=== PATIENT | female | born 1975 | race Caucasian/White ===

== ENCOUNTER 2017-08-31 11:09 | Emergency (ER) | payer BC ==
[2017-08-31] MEDS ORDERED: SODIUM CHLORIDE 0.9% 1,000 ML IV STA (11:35)
[2017-08-31] MEDS ORDERED: HYDROmorphone 0.5 MG/0.5 ML SYRINGE IVP STA (11:35)
[2017-08-31] MEDS ORDERED: RX INFO: IV CONTRAST WAS GIVEN 1 EACH MISC MISCELLANE PRN (11:55)
--- NOTE | 2017-08-31 12:02 | ED ---
General Adult HPI - General Chief complaint: Abdominal Pain Stated complaint: Abdominal pain Time Seen by Provider: 08/31/17 11:25 Source: patient, RN notes reviewed Mode of arrival: ambulatory Limitations: no limitations - History of Present Illness Initial comments: 42-year-old female presents to the emergency department with a chief complaint of abdominal pain. She states she started with nausea vomiting diarrhea that started on Monday. Patient states she's continued to have this nausea vomiting diarrhea and she states that she does not seem to be improving. Patient states she continues to have this pain and discomfort she went to the clinic where she was originally seen for any referred her here. She states she was told she had an elevated white count. She denies any blood in the vomit or diarrhea. She denies any surgeries on the abdomen she does admit to some pelvic surgeries. She was concerned due to her continued symptoms so she thought that she should be seen. There is been no fever or chills.Patient denies any recent fever, chills, shortness of breath, chest pain, back pain, numbness or tingling, dysuria or hematuria, constipation, headaches or visual changes, or any other current symptoms. - Related Data Home Medications Medication Instructions Recorded Confirmed Atorvastatin [Lipitor] 20 mg PO HS 08/31/17 08/31/17 Omeprazole [PriLOSEC] 20 mg PO HS 08/31/17 08/31/17 Ondansetron [Zofran ODT] 8 mg PO Q12HR PRN 08/31/17 08/31/17 Previous Rx's Medication Instructions Recorded Dicyclomine [Bentyl] 10 mg PO TID #20 capsule 08/31/17 Ondansetron Odt [Zofran ODT] 4 mg PO Q8HR PRN #20 tab 08/31/17 Allergies Allergy/AdvReac Type Severity Reaction Status Date / Time sulfamethoxazole Allergy Rash/Hives Verified 08/31/17 11:25 [From Bactrim] trimethoprim [From Bactrim] Allergy Rash/Hives Verified 08/31/17 11:25 amoxicillin [From Augmentin] AdvReac Vomiting Verified 08/31/17 11:25 clavulanic acid AdvReac Vomiting Verified 08/31/17 11:25 [From Augmentin] Review of Systems ROS Statement: Those systems with pertinent positive or pertinent negative responses have been documented in the HPI. ROS Other: All systems not noted in ROS Statement are negative. Past Medical History Past Medical History: GERD/Reflux, Hyperlipidemia History of Any Multi-Drug Resistant Organisms: None Reported Past Surgical History: No Surgical Hx Reported Past Psychological History: No Psychological Hx Reported Smoking Status: Never smoker Past Alcohol Use History: None Reported Past Drug Use History: None Reported General Exam - General Exam Comments Initial Comments: General: The patient is awake and alert, in no distress, and does not appear acutely ill. Eye: Pupils are equal, round and reactive to light, extra-ocular movements are intact; there is normal conjunctiva bilaterally. No signs of icterus. Ears, nose, mouth and throat: There are moist mucous membranes. Neck: The neck is supple, there is no tenderness. Cardiovascular: There is a regular rate and rhythm. No murmur, rub or gallop is appreciated. Respiratory: Lungs are clear to auscultation, respirations are non-labored, breath sounds are equal. No wheezes, stridor, rales, or rhonchi. Gastrointestinal: Soft, non-distended, generalized tenderness of the abdomen without masses or organomegaly noted. There is no rebound or guarding present. No CVA tenderness. Bowel sounds are unremarkable. Back: There is no tenderness to palpation in the midline. There is no obvious deformity. No rashes noted. Musculoskeletal: Normal ROM, no tenderness, There is no pedal edema. There is no calf tenderness or swelling. Sensation intact. Pulses equal bilaterally 2+. Neurological: CN II-XII intact, There are no obvious motor or sensory deficits. Coordination appears grossly intact. Speech is normal. Skin: Skin is warm and dry and no rashes or lesions are noted. Psychiatric: Cooperative, appropriate mood & affect, normal judgment. Limitations: no limitations Course Vital Signs 08/31/17 11:14 Temperature 97.8 F Pulse Rate 75 Respiratory 18 Rate Blood Pressure 125/62 O2 Sat by Pulse 99 Oximetry Medical Decision Making - Medical Decision Making 42-year-old female presents emergency department with chief complaint abdominal pain. At this time patient's lab work was reviewed. At this time CT was reviewed as well. At this time patient does appear to frontal colitis. We discussed we'll start her on Zofran and Bentyl for home. We discussed continued follow-up we discussed return parameters all questions. Patient stated that she understood and she is agreement this plan. All questions have been answered. She will be discharged. - Lab Data Result diagrams: 08/31/17 11:54 08/31/17 11:54 Lab Results 08/31/17 08/31/17 08/31/17 Range/Units 11:54 11:54 13:00 WBC 4.8 (3.8-10.6) k/uL RBC 4.37 (3.80-5.40) m/uL Hgb 12.9 (11.4-16.0) gm/dL Hct 37.9 (34.0-46.0) % MCV 86.8 (80.0-100.0) fL MCH 29.6 (25.0-35.0) pg MCHC 34.1 (31.0-37.0) g/dL RDW 12.6 (11.5-15.5) % Plt Count 287 (150-450) k/uL Neutrophils % 64 % Lymphocytes % 23 % Monocytes % 7 % Eosinophils % 2 % Basophils % 1 % Neutrophils # 3.1 (1.3-7.7) k/uL Lymphocytes # 1.1 (1.0-4.8) k/uL Monocytes # 0.3 (0-1.0) k/uL Eosinophils # 0.1 (0-0.7) k/uL Basophils # 0.0 (0-0.2) k/uL Sodium 140 (137-145) mmol/L Potassium 3.7 (3.5-5.1) mmol/L Chloride 102 (98-107) mmol/L Carbon Dioxide 27 (22-30) mmol/L Anion Gap 11 mmol/L BUN 8 (7-17) mg/dL Creatinine 0.80 (0.52-1.04) mg/dL Est GFR (MDRD) Af Amer >60 (>60 ml/min/1.73 sqM) Est GFR (MDRD) Non-Af >60 (>60 ml/min/1.73 sqM) Glucose 100 H (74-99) mg/dL Calcium 9.2 (8.4-10.2) mg/dL Total Bilirubin 0.6 (0.2-1.3) mg/dL AST 31 (14-36) U/L ALT 35 (9-52) U/L Alkaline Phosphatase 93 (38-126) U/L Total Protein 7.0 (6.3-8.2) g/dL Albumin 4.2 (3.5-5.0) g/dL Amylase 102 (30-110) U/L Lipase 296 (23-300) U/L Urine Color Light Yellow Urine Appearance Clear (Clear) Urine pH 6.5 (5.0-8.0) Urine Protein Trace H (Negative) Urine Glucose (UA) Negative (Negative) Urine Ketones Trace H (Negative) Urine Blood Negative (Negative) Urine Nitrite Negative (Negative) Urine Bilirubin Negative (Negative) Urine Urobilinogen <2.0 (<2.0) mg/dL Ur Leukocyte Esterase Negative (Negative) - Radiology Data Radiology results: report reviewed, image reviewed Disposition Clinical Impression: Enterocolitis Disposition: HOME SELF-CARE Condition: Stable Instructions: Colitis (ED) Additional Instructions: Please use medication as discussed. Please follow up with family doctor if symptoms have not improved over the next two days. Please return to the emergency room if your symptoms increase or worsen or for any other concerns. Prescriptions: Dicyclomine [Bentyl] 10 mg PO TID #20 capsule Ondansetron Odt [Zofran ODT] 4 mg PO Q8HR PRN #20 tab PRN Reason: Nausea Referrals: Raghavendra Castillo MD [Primary Care Provider] - 1-2 days Time of Disposition: 13:23
[2017-08-31 12:11] LABS: Basophils % (A) 1 %; Eosinophils # (A) 0.1 k/uL (0-0.7); Eosinophils % (A) 2 %; HCT 37.9 % (34.0-46.0); HGB 12.9 gm/dL (11.4-16.0); Lymphocytes # (A) 1.1 k/uL (1.0-4.8); Lymphocytes % (A) 23 %; MCH 29.6 pg (25.0-35.0); MCHC 34.1 g/dL (31.0-37.0); MCV 86.8 fL (80.0-100.0); Mean Platelet Volume 6.6; Monocytes # (A) 0.3 k/uL (0-1.0); Monocytes % (A) 7 %; Neutrophils # (A) 3.1 k/uL (1.3-7.7); Neutrophils % (A) 64 %; Platelet Count 287 k/uL (150-450); RBC 4.37 m/uL (3.80-5.40); RDW 12.6 % (11.5-15.5); WBC 4.8 k/uL (3.8-10.6)
[2017-08-31 12:22] LABS: ALT 35 U/L (9-52); AST 31 U/L (14-36); Albumin 4.2 g/dL (3.5-5.0); Alkaline Phosphatase 93 U/L (38-126); Amylase 102 U/L (30-110); Anion Gap 11 mmol/L; Blood Urea Nitrogen 8 mg/dL (7-17); Calcium 9.2 mg/dL (8.4-10.2); Carbon Dioxide 27 mmol/L (22-30); Chloride 102 mmol/L (98-107); Glucose 100 mg/dL (74-99); Lipase 296 U/L (23-300); Potassium 3.7 mmol/L (3.5-5.1); Sodium 140 mmol/L (137-145); Total Bilirubin 0.6 mg/dL (0.2-1.3)
--- NOTE | 2017-08-31 12:45 | CT ---
EXAMINATION TYPE: CT abdomen pelvis w con DATE OF EXAM: 08/31/2017 COMPARISON: NONE HISTORY: Generalized pain for 5 days with nausea, vomiting and diarrhea CT DLP: 548 mGycm CONTRAST: CT scan of the abdomen and pelvis is performed without Oral Contrast and with IV Contrast, patient in jected with 100 mL of Omnipaque 300. FINDINGS: LUNG BASES-: No visible nodule. No infiltrate. LIVER/GB: No calcified gallstones. No space occupying hepatic lesion. Biliary tree is of normal ca liber. PANCREAS: No inflammation. No distinct mass. SPLEEN: No splenic enlargement. No lesion seen. ADRENALS: No nodule. No thickening. KIDNEYS/BLADDER: No hydronephrosis. No nephrolithiasis. No distinct solid renal mass. Small renal cyst right kidney. Urinary bladder grossly unremarkable. BOWEL: Wall thickening involving the small bowel as well as the large bowel felt to reflect enterocol itis. Small amount of free fluid within the pelvis. No evidence of perforation or abscess. Normal jazmyn endix.. GENITAL ORGANS: 2 cm left ovarian cyst. LYMPH NODES: No greater than 1cm abdominal or pelvic lymph nodes are appreciated. AORTA: No significant abnormality. OSSEOUS STRUCTURES: No significant abnormality is seen. OTHER: No significant additional abnormality is seen. IMPRESSION: 1. Correlate for enterocolitis. 2. 2 cm left ovarian cyst. 3. Small amount of free fluid within the pelvis.
[2017-08-31 13:09] LABS: Appearance,Urine Clear (Clear); Bilirubin,Urine Negative (Negative); Blood,Urine Negative (Negative); Color,Urine Light Yellow; Glucose,Urine (UA) Negative (Negative); Ketones,Urine Trace (Negative); Leukocyte Esterase,Urine Negative (Negative); Nitrite,Urine Negative (Negative); PH, Urine 6.5 (5.0-8.0); Protein,Urine Trace (Negative); Urobilinogen,Urine <2.0 mg/dL (<2.0)
[2017-08-31 13:32] LABS: Specific Gravity,Urine >1.050 (1.001-1.035)
[2017-08-31 13:46] VITALS: BP 116/57; PULSE 70; RESP 16; TEMP 97.9
== END 2017-08-31 14:12 | disposition home or self-care (01) ==
LOC: EC 11:09
DX: K52.9 Noninfective gastroenteritis and colitis, unspecified (principal); K21.9 Gastro-esophageal reflux disease without esophagitis; E78.5 Hyperlipidemia, unspecified; Z79.899 Other long term (current) drug therapy; Z88.2 Allergy status to sulfonamides; Z88.0 Allergy status to penicillin
CPT/HCPCS: 99284; 96374; 36415; 80053; 82150; 83690; 85025; 81003; 87040; 74177; Q9967; J1170

== ENCOUNTER 2017-10-04 09:54 | Day surgery (SDC) | payer BC ==
[2017-10-02 13:11] VITALS: BMI 26.2
[~2017-10-04 09:54] MED LIST: LACTATED RINGERS 1,000 ML IV SCH; LIDOCAINE 1% 20 ML VIAL (10MG/ML) FOR IV START INTRADERMA PRN
[2017-10-04 11:33] VITALS: TEMP 98.6
[2017-10-04 11:34] LABS: Glucose,Whole Blood 86 mg/dL (75-99)
[2017-10-04] MEDS ORDERED: LIDOCAINE 1% INJ 10MG/ML (20 ML MDV) ONE (11:47)
[2017-10-04] MEDS ORDERED: PROPOFOL 10 MG/ML 20 ML VIAL IV ONE (11:47)
--- NOTE | 2017-10-04 12:02 | P.PCN ---
Date of Procedure: 10/04/17 Procedure(s) Performed: BRIEF HISTORY: Patient is a 42-year-old pleasant white female, scheduled for an elective colonoscopy as a part of evaluation of chronic diarrhea for the last 6 weeks duration. She is been having bowel movements anywhere from 4-5 a day which are loose to watery in consistency but no blood in the stool. She was treated briefly with antibiotics and steroids with no help. She is hence scheduled for colonoscopy to evaluate further. She also has family history of colon cancer diagnosed in her father. PROCEDURE PERFORMED: Colonoscopy with random biopsies. PREOPERATIVE DIAGNOSIS:. Diarrhea of 6 weeks duration. IV sedation per Anesthesia. PROCEDURE: After informed consent was obtained, the patient, was brought into the endoscopy unit. IV sedation was administered by Anesthesia under continuous monitoring. Digital rectal examination was normal. Initially the Olympus CF- 160 flexible video colonoscope was then inserted in the rectum, gradually advanced into the cecum without any difficulty. Careful examination was performed as the scope was gradually being withdrawn. Ileocecal valve and the appendiceal orifice were visualized and appeared normal. Prep was excellent. Terminal ileum was intubated and 20 cm visualized and appeared normal. Mucosa of the cecum, ascending colon, transverse colon, descending colon, sigmoid colon , and rectum appeared normal. Random biopsies were done from ascending and descending colon to rule out microscope/collagenous colitis. Retroflexion was performed in the rectum and no lesions were seen. The patient tolerated the procedure well. IMPRESSION: Normal-appearing colon from rectum to cecum with no evidence of colitis or colorectal neoplasia . RECOMMENDATIONS: Findings of this examination were discussed with the patient as well as a family. She was advised to follow with the biopsy results. She can have a repeat colonoscopy in 5 years because of the family history of colon cancer.
[2017-10-04 12:43] VITALS: RESP 18
[2017-10-04 12:47] VITALS: BP 113/75; PULSE 80
--- NOTE | 2017-10-06 11:02 | CDI ---
Outpatient Documentation Clarification Form Date: 10/06/17 CDS/Ham Pumper Name: Amalia Crowell Phone: If any questions, call Lala Galaviz Internal Recruiter at [phone] Patient Name: Gilma Chowdhury Admit Date: 10/04/17 Discharge Date: 10/04/17 ATTENTION: The [facility] Coding Staff appreciate your assistance in clarifying documentation. Please respond to the clarification below the line at the bottom and electronically sign. The [facility] Coding staff will review the response and follow-up if needed. Please note: Queries are made part of the Legal Health Record. If you have any questions, please contact the Internal Recruiter. Dear Dr. Meliza Valdez, The patient presented with chronic diarrhea. The anesthesiologist documented IBS. Is the patients chronic diarrhea due to IBS? Or, is it unrelated? Thank you for your kind consideration. MTDD
--- NOTE | 2017-10-10 16:07 | CDI ---
Outpatient Documentation Clarification Form Date: 10/06/17 CDS/Research Worker Encyclopedia Name: Amalia Crowell Phone: If any questions, call Lala Galaviz Chief Wharfinger at [phone] Patient Name: Gilma Chowdhury Admit Date: 10/10/17 Discharge Date: 10/10/17 ATTENTION: The [facility] Coding Staff appreciate your assistance in clarifying documentation. Please respond to the clarification below the line at the bottom and electronically sign. The [facility] Coding staff will review the response and follow-up if needed. Please note: Queries are made part of the Legal Health Record. If you have any questions, please contact the Chief Wharfinger. Dear Dr. Meliza Valdez, The patient presented with chronic diarrhea. The anesthesiologist documented IBS. Is the patients chronic diarrhea due to IBS? Or, is it unrelated? Thank you for your kind consideration. MTDD
--- NOTE | 2017-10-17 15:37 | CDI ---
Outpatient Documentation Clarification Form Date: 10/17/17 CDS/Embroidery Worker Name: Amalia Crowell Phone: If any questions, call Lala Galaviz Software Installation Engineer at [phone] Patient Name: Gilma Chowdhury Admit Date: 10/04/17 Discharge Date: 10/04/17 ATTENTION: The [facility] Coding Staff appreciate your assistance in clarifying documentation. Please respond to the clarification below the line at the bottom and electronically sign. The [facility] Coding staff will review the response and follow-up if needed. Please note: Queries are made part of the Legal Health Record. If you have any questions, please contact the Software Installation Engineer. Dear Dr. Meliza Valdez, The patient presented with chronic diarrhea. The anesthesiologist documented IBS. Is the patients chronic diarrhea due to IBS? Patient has chronic diarrhea because of IBS. Meliza Valdez. MTDD
== END 2017-10-04 12:50 | disposition home or self-care (01) ==
LOC: ORWHC2ENDO 09:54
PROVIDERS: ATTEND Internal Medicine Gastroenterology
DX: K58.0 Irritable bowel syndrome with diarrhea (principal); Z80.0 Family history of malignant neoplasm of digestive organs; K21.9 Gastro-esophageal reflux disease without esophagitis; E78.5 Hyperlipidemia, unspecified; G43.909 Migraine, unspecified, not intractable, without status migrainosus; Z79.899 Other long term (current) drug therapy; Z88.1 Allergy status to other antibiotic agents; Z88.2 Allergy status to sulfonamides
CPT/HCPCS: 81025; 88305; 45380; J2001; J2704

== ENCOUNTER → 2020-05-12 | Outpatient (CLI) | payer BC ==
--- NOTE | 2020-05-12 12:13 | MM ---
Reason for exam: screening (asymptomatic). Baseline mammogram. History: Taking progesterone for 1 year beginning at age 43. Took other hormone for 1 year beginning at age 43. Physical Findings: Nurse did not find any significant physical abnormalities on exam. MG 3D Screening Mammo W/Cad Bilateral CC and MLO view(s) were taken. The breast tissue is heterogeneously dense. This may lower the sensitivity of mammography. No significant findings. These results were verbally communicated with the patient and result sheet given to the patient on 05/12/20. ASSESSMENT: Negative, BI-RAD 1 RECOMMENDATION: Routine screening mammogram of both breasts in 1 year.
== END | disposition home or self-care (01) ==
LOC: RADMAMWWP 11:01
PROVIDERS: ATTEND Family Medicine
DX: Z12.31 Encounter for screening mammogram for malignant neoplasm of breast (principal)
CPT/HCPCS: 77063; 77067

== ENCOUNTER → 2023-05-12 | Outpatient (CLI) | payer BC ==
--- NOTE | 2023-05-12 09:05 | CT ---
EXAMINATION TYPE: CT sinus wo con DATE OF EXAM: 05/12/2023 COMPARISON: None HISTORY: Sinusitis CT DLP: 563 mGycm. Automated Exposure Control for Dose Reduction was Utilized. TECHNIQUE: CT scan of the sinuses is performed without contrast, axial images are obtained, coronal r eformatted images are also reviewed. FINDINGS: Moderate mucosal thickening involving the left maxillary sinus with occlusion of the left o stiomeatal complex. Nasal septal deviation noted and there is extensive postsurgical changes involvin g the facial bones. Visualized portion of mastoid air cells show no abnormal opacification. The globes are intact bilate rally. 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 Bilateral TMJ arthropathy. Calcification in the preseptal region along the left orbit incidentally no meghan. IMPRESSION: 1. Moderate chronic left maxillary sinusitis with occlusion of the left ostiomeatal complex.
== END | disposition home or self-care (01) ==
LOC: RADCTMAIN 06:41
PROVIDERS: ATTEND Family Medicine
DX: J32.0 Chronic maxillary sinusitis (principal)
CPT/HCPCS: 70486

== ENCOUNTER → 2023-12-14 | Outpatient (CLI) | payer BC ==
--- NOTE | 2023-12-15 12:18 | MM ---
Reason for Exam: Screening (asymptomatic). Last mammogram was performed 3 year(s) and 7 month(s) ago. Patient History: Menarche at age 13. First Full-Term at age 30. Premenopausal. Currently using Progesterone, beginning at age 43 for 1 year. Risk Values: Brittney 5 year model risk: 1.0%. NCI Lifetime model risk: 11.4%. Prior Study Comparison: 05/12/2020 Bilateral Screening Mammogram, [facility]. Tissue Density: The breasts are heterogeneously dense, which may obscure small masses. Findings: Analyzed By CAD. There is no suspicious group of microcalcifications or new suspicious mass in either breast. Overall Assessment: Benign, BI-RAD 2 Management: Screening Mammogram of both breasts in 1 year. . Patient should continue monthly self-breast exams. A clinical breast exam by your physician is recommended on an annual basis. This exam should not preclude additional follow-up of suspicious palpable abnormalities. Note on Brittney scores and lifetime risk: 1. A Brittney score greater than 3% is considered moderate risk. If this is the case, consider specialist referral to assess eligibility for a risk reducing agent. 2. If overall lifetime risk for the development of breast cancer is 20% or higher, the patient may qualify for future screening with alternating mammogram and breast MRI. Electronically signed and approved by: Raghavendra Maxwell M.D. Radiologis
== END | disposition home or self-care (01) ==
LOC: RADMAMWWP 08:55
PROVIDERS: ATTEND Obstetrics & Gynecology
DX: Z12.31 Encounter for screening mammogram for malignant neoplasm of breast (principal)
CPT/HCPCS: 77063; 77067